=== PATIENT | male | born 1995 | race Caucasian/White ===

== ENCOUNTER → 2020-05-22 | Outpatient (CLI) | payer OTHER ==
[~2020-05-22] MED LIST: HYDROCODON-ACE1 EAC4 PO
== END ==
LOC: KOH-I 08:45
DX: S82.002A Unspecified fracture of left patella, initial encounter for closed fracture (principal); S76.112A Strain of left quadriceps muscle, fascia and tendon, initial encounter; R93.6 Abnormal findings on diagnostic imaging of limbs; M25.462 Effusion, left knee; V89.2XXA Person injured in unspecified motor-vehicle accident, traffic, initial encounter
CPT/HCPCS: 73721

== ENCOUNTER → 2020-05-23 | Day surgery (SDC) | payer OTHER ==
[~2020-05-23] VITALS: Ht 185.4 cm; Wt 102.5 kg
[2020-05-23 10:01] LABS: HEMOGLOBIN 14.1 gm/dl (14.0-17.5); RED BLOOD COUNT 4.57 M/UL (4.20-5.50); WHITE BLOOD COUNT 5.4 K/UL (4.5-11.0)
[2020-05-23 10:23] LABS: BUN/CREATININE RATIO 12 (0-10)
== END | disposition home or self-care (01) ==
LOC: OR 09:20
PROVIDERS: Orthopaedic Surgery
PROC: 0QSF04Z Reposition Left Patella with Internal Fixation Device, Open Approach (ICD-10-PCS; 2020-05-23)
PROC: 3E0T3BZ Introduction of Anesthetic Agent into Peripheral Nerves and Plexi, Percutaneous Approach (ICD-10-PCS; principal; 2020-05-23 12:30)
DX: S82.032A Displaced transverse fracture of left patella, initial encounter for closed fracture (principal); F17.210 Nicotine dependence, cigarettes, uncomplicated; Z20.822 Contact with and (suspected) exposure to COVID-19; G89.18 Other acute postprocedural pain; V89.2XXA Person injured in unspecified motor-vehicle accident, traffic, initial encounter
CPT/HCPCS: 36415; 71045; 73560; 76000; 80048; 85027; C1713; J0690; J1100; J1885; J2001; J2250; J2405; J2704; J2795; J3010; J7120